=== PATIENT | female | born 1990 | race African-American/Black ===

== ENCOUNTER 2018-12-16 22:41 | Emergency (ER) | payer MEDICAID ==
[~2018-12-16] VITALS: Ht 160 cm; Wt 61.2 kg
[2018-12-17 00:59] VITALS: BP 116/76
[2018-12-17] MEDS ORDERED: IBUPROFEN 600 MG TAB PO ONE (01:15)
[2018-12-17] MEDS ORDERED: ACETAMINOPHEN/CODEINE#3 (300/30mg) TAB PO ONE (01:15)
== END 2018-12-17 01:40 | disposition home or self-care (01) ==
LOC: ER 22:45
DX: S66.911A Strain of unspecified muscle, fascia and tendon at wrist and hand level, right hand, initial encounter (principal); S60.221A Contusion of right hand, initial encounter; W20.8XXA Other cause of strike by thrown, projected or falling object, initial encounter; Y93.89 Activity, other specified; Y92.89 Other specified places as the place of occurrence of the external cause; Y99.8 Other external cause status
CPT/HCPCS: 29125; 73130